=== PATIENT | female | born 1950 | race Two or more races ===

== ENCOUNTER 2018-02-07 10:50 | Outpatient (CLI) | payer MEDICARE | END 2018-02-07 23:59 | disposition home health service (06) | LOC: WOU 10:50 | PROVIDERS: ATTEND Surgery | DX: S91.114A Laceration without foreign body of right lesser toe(s) without damage to nail, initial encounter (principal); L03.031 Cellulitis of right toe; M20.41 Other hammer toe(s) (acquired), right foot; M20.42 Other hammer toe(s) (acquired), left foot; X58.XXXA Exposure to other specified factors, initial encounter; Y92.89 Other specified places as the place of occurrence of the external cause; M79.674 Pain in right toe(s); Z87.891 Personal history of nicotine dependence | CPT/HCPCS: 11043; 73630-TC; G0463; Z7610 ==

== ENCOUNTER 2018-02-10 08:10 | Outpatient (CLI) | END 2018-02-10 23:59 | disposition home health service (06) | DX: S91.114A Laceration without foreign body of right lesser toe(s) without damage to nail, initial encounter (principal); L03.031 Cellulitis of right toe; X58.XXXA Exposure to other specified factors, initial encounter; Y92.89 Other specified places as the place of occurrence of the external cause; M20.41 Other hammer toe(s) (acquired), right foot; M20.42 Other hammer toe(s) (acquired), left foot; Z96.643 Presence of artificial hip joint, bilateral; Z87.891 Personal history of nicotine dependence ==

== ENCOUNTER 2018-02-11 14:03 | Outpatient (CLI) | payer MEDICARE | END 2018-02-11 23:59 | disposition home or self-care (01) | LOC: MRI 14:03 | PROVIDERS: ATTEND Surgery | DX: M20.41 Other hammer toe(s) (acquired), right foot (principal); M19.071 Primary osteoarthritis, right ankle and foot; M62.571 Muscle wasting and atrophy, not elsewhere classified, right ankle and foot; M79.9 Soft tissue disorder, unspecified | CPT/HCPCS: 73718-TC ==

== ENCOUNTER 2018-02-14 08:11 | Outpatient (CLI) | payer MEDICARE | END 2018-02-14 23:59 | disposition home health service (06) | LOC: WOU 08:11 | PROVIDERS: ATTEND Podiatrist Foot & Ankle Surgery | DX: S91.114A Laceration without foreign body of right lesser toe(s) without damage to nail, initial encounter (principal); X58.XXXA Exposure to other specified factors, initial encounter; Y92.89 Other specified places as the place of occurrence of the external cause; L03.031 Cellulitis of right toe; M79.674 Pain in right toe(s); M20.41 Other hammer toe(s) (acquired), right foot; M20.42 Other hammer toe(s) (acquired), left foot; Z96.643 Presence of artificial hip joint, bilateral; Z87.891 Personal history of nicotine dependence | CPT/HCPCS: 11042; A6402 ==

== ENCOUNTER 2018-02-17 11:00 | Outpatient (CLI) | payer MEDICARE | END 2018-02-17 23:59 | disposition home or self-care (01) | LOC: WOU 11:00 | PROVIDERS: ATTEND Podiatrist Foot & Ankle Surgery | DX: S91.114A Laceration without foreign body of right lesser toe(s) without damage to nail, initial encounter (principal); W22.8XXA Striking against or struck by other objects, initial encounter; Y92.89 Other specified places as the place of occurrence of the external cause; M20.42 Other hammer toe(s) (acquired), left foot; M20.41 Other hammer toe(s) (acquired), right foot; M79.674 Pain in right toe(s); Z87.891 Personal history of nicotine dependence; Z96.643 Presence of artificial hip joint, bilateral | CPT/HCPCS: 11042 ==

== ENCOUNTER 2018-02-21 11:00 | Outpatient (CLI) | payer MEDICARE | END 2018-02-21 23:59 | disposition home or self-care (01) | LOC: WOU 11:00 | PROVIDERS: ATTEND Podiatrist Foot & Ankle Surgery | DX: S91.114D Laceration without foreign body of right lesser toe(s) without damage to nail, subsequent encounter (principal); X58.XXXD Exposure to other specified factors, subsequent encounter; M79.674 Pain in right toe(s); M20.41 Other hammer toe(s) (acquired), right foot; M20.42 Other hammer toe(s) (acquired), left foot; Z87.891 Personal history of nicotine dependence; F32.9 Major depressive disorder, single episode, unspecified | CPT/HCPCS: A6402; G0463 ==

== ENCOUNTER 2018-03-24 11:20 | Outpatient (CLI) | payer MEDICARE | END 2018-03-24 23:59 | disposition home or self-care (01) | LOC: WOU 11:20 | PROVIDERS: ATTEND Podiatrist Foot & Ankle Surgery | DX: S91.114D Laceration without foreign body of right lesser toe(s) without damage to nail, subsequent encounter (principal); X58.XXXD Exposure to other specified factors, subsequent encounter; M20.42 Other hammer toe(s) (acquired), left foot; M20.41 Other hammer toe(s) (acquired), right foot; M79.674 Pain in right toe(s) | CPT/HCPCS: G0463 ==

== ENCOUNTER 2018-03-31 11:25 | Outpatient (CLI) | payer MEDICARE | END 2018-03-31 23:59 | disposition home or self-care (01) | LOC: WOU 11:25 | PROVIDERS: ATTEND Podiatrist Foot & Ankle Surgery | DX: Z47.89 Encounter for other orthopedic aftercare (principal); M86.671 Other chronic osteomyelitis, right ankle and foot; M20.42 Other hammer toe(s) (acquired), left foot; S91.115D Laceration without foreign body of left lesser toe(s) without damage to nail, subsequent encounter; X58.XXXD Exposure to other specified factors, subsequent encounter; Z88.2 Allergy status to sulfonamides | CPT/HCPCS: A6402; G0463 ==

== ENCOUNTER 2018-04-07 11:20 | Outpatient (CLI) | payer MEDICARE | END 2018-04-07 23:59 | disposition home or self-care (01) | LOC: WOU 11:20 | PROVIDERS: ATTEND Podiatrist Foot & Ankle Surgery | DX: Z47.89 Encounter for other orthopedic aftercare (principal); M20.41 Other hammer toe(s) (acquired), right foot; M20.42 Other hammer toe(s) (acquired), left foot; M86.671 Other chronic osteomyelitis, right ankle and foot; Z96.643 Presence of artificial hip joint, bilateral; Z87.891 Personal history of nicotine dependence; Z88.2 Allergy status to sulfonamides; F32.9 Major depressive disorder, single episode, unspecified | CPT/HCPCS: A6402 ×2; G0463 ==

== ENCOUNTER 2018-04-08 11:01 | Outpatient (CLI) | payer MEDICARE | END 2018-04-08 23:59 | disposition home or self-care (01) | LOC: MRI 11:01 | PROVIDERS: ATTEND Podiatrist Foot & Ankle Surgery | DX: M86.8X7 Other osteomyelitis, ankle and foot (principal); M19.071 Primary osteoarthritis, right ankle and foot | CPT/HCPCS: 73718-TC ==

== ENCOUNTER 2018-04-18 11:10 | Outpatient (CLI) | payer MEDICARE | END 2018-04-18 23:59 | disposition home or self-care (01) | LOC: WOU 11:10 | PROVIDERS: ATTEND Podiatrist Foot & Ankle Surgery | DX: M86.671 Other chronic osteomyelitis, right ankle and foot (principal); M79.674 Pain in right toe(s); M20.41 Other hammer toe(s) (acquired), right foot; M20.42 Other hammer toe(s) (acquired), left foot; Z96.643 Presence of artificial hip joint, bilateral | CPT/HCPCS: G0463 ==